=== PATIENT | female | born 1995 | race Caucasian/White ===

== ENCOUNTER 2017-07-17 16:18 | Emergency (ER) | payer OTHER ==
[2017-07-17 17:14] LABS: Absolute Lymphocytes (CBC) 1.8 K/uL (0.7-4.9); Absolute Monocytes 0.5 K/uL (0.1-1.3); Absolute Neutrophil 4.9 K/uL (1.8-8.0); Basophils % 0.5 % (0-1.3); Eosinophils % 1.2 % (0-4.4); Hematocrit 37.6 % (36.0-45.0); Lymphocytes % 24.8 % (15.3-44.8); MCH 30.9 pg (27.0-35.0); MCV 91.1 fL (80-100); MPV 10.2 fL (7.6-11.3); Monocytes % 6.2 % (3.3-12.3); RBC Red Blood Cell Count 4.13 M/uL (3.86-4.86)
[2017-07-17 17:22] LABS: Bicarbonate 27 mEq/L (21-31); Glucose Level 101 mg/dL (65-120); Potassium 3.4 mEq/L (3.6-5.0); Sodium Level 139 mEq/L (135-145)
[2017-07-17] MEDS ORDERED: DEXAMETHASONE 10 MG/ML VIAL ONE (17:24)
[2017-07-17] MEDS ORDERED: NA CHLORIDE 0.9% 1,000 ML ONE (17:24)
[2017-07-17] MEDS ORDERED: KETOROLAC 30 MG/ML INJ ONE (17:24)
[2017-07-17 17:28] LABS: ALT/SGPT 16 IU/L (10-60); AST/SGOT 19 IU/L (10-42); Albumin 3.8 g/dL (3.2-5.5); Alkaline Phosphatase 63 IU/L (42-121); BUN Blood Urea Nitrogen 9 mg/dL (6-20); Bilirubin Direct 0.1 mg/dL (0-0.2); Bilirubin Total 0.7 mg/dL (0.3-1.2); Glomerular Filtration Rate > 90 mL/min (=/>90); Protein, Total 6.6 g/dL (6.0-8.3)
[2017-07-17] MEDS ORDERED: DIPHENHYDRAMINE 50 MG/ML VIAL ONE (17:37)
[2017-07-17 17:45] LABS: Barbiturates NEGATIVE; Benzodiazepines NEGATIVE; Cocaine NEGATIVE; METHAMPHETAM NEGATIVE; Opiates NEGATIVE; Phencyclidine NEGATIVE; THC Cannibis NEGATIVE
--- NOTE | 2017-07-17 18:11 | EDPHYS ---
Physician Documentation [facility] Name: Tammi Raphael Age: 22 yrs Sex: Female : 1995 Arrival Date: 07/17/2017 Time: 16:22 Bed 23 Private MD: ED Physician Coy Trevino HPI: 07/17 17:00 This 22 yrs old Female presents to ER via Ambulatory with complaints of Near wa Syncope. 17:00 This 22 yrs old Female presents to ER via Ambulatory with complaints of Near wa Syncope. 17:00 The patient has experienced near-syncope, almost passed out, felt dizzy, saw "spots" in wa vision similar to here previous migraine aura. Onset: The symptoms/episode began/occurred 1 hour(s) ago. Duration: This was a single episode, that is still ongoing, but improving, admits to VINCENT. admits to dizziness. denies CP, SOB. 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 Associated injury: The patient did not suffer any apparent associated injury. Associated signs and symptoms: Pertinent positives: dizziness, headache, lightheadedness, Pertinent negatives: chest pain, diaphoresis, diarrhea, nausea, numbness, palpitations. Current symptoms: headache, that is moderate, dizziness, . The patient has experienced similar episodes in the past, a few times. 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 - Social history:: Smoking status: Patient uses tobacco products, smokes one pack cigarettes per day. - Family history:: not pertinent. - Hospitalizations: : No recent hospitalization is reported. ROS: 17:05 Constitutional: Negative for fever, chills, and weight loss, Eyes: Negative for injury, wa pain, redness, and discharge, ENT: Negative for injury, pain, and discharge, Neck: Negative for injury, pain, and swelling, Cardiovascular: Negative for chest pain, palpitations, and edema, Respiratory: Negative for shortness of breath, cough, wheezing, and pleuritic chest pain, Abdomen/GI: Negative for abdominal pain, nausea, vomiting, diarrhea, and constipation, Back: Negative for injury and pain, : Negative for injury, bleeding, discharge, and swelling, MS/Extremity: Negative for injury and deformity, Skin: Negative for injury, rash, and discoloration, Allergy/Immunology: Negative for hives, rash, and allergies. 17:05 Neuro: Positive for dizziness, headache, visual changes, Negative for altered mental status, gait disturbance, hearing loss, numbness, seizure activity. 17:05 All other systems are negative. Exam: 17:06 Abdomen/GI: Inspection: Bowel sounds: Palpation: wa 17:06 Head/Face: Normocephalic, atraumatic. Eyes: Pupils equal round and reactive to light, extra-ocular motions intact. Lids and lashes normal. Conjunctiva and sclera are non-icteric and not injected. Cornea within normal limits. Periorbital areas with no swelling, redness, or edema. ENT: Nares patent. No nasal discharge, no septal abnormalities noted. Tympanic membranes are normal and external auditory canals are clear. Oropharynx with no redness, swelling, or masses, exudates, or evidence of obstruction, uvula midline. Mucous membranes moist. Neck: Trachea midline, no thyromegaly or masses palpated, and no cervical lymphadenopathy. Supple, full range of motion without nuchal rigidity, or vertebral point tenderness. No Meningismus. Chest/axilla: Normal chest wall appearance and motion. Nontender with no deformity. No lesions are appreciated. Cardiovascular: Regular rate and rhythm with a normal S1 and S2. No gallops, murmurs, or rubs. Normal PMI, no JVD. No pulse deficits. Respiratory: Lungs have equal breath sounds bilaterally, clear to auscultation and percussion. No rales, rhonchi or wheezes noted. No increased work of breathing, no retractions or nasal flaring. Abdomen/GI: Soft, non-tender, with normal bowel sounds. No distension or tympany. No guarding or rebound. No evidence of tenderness throughout. Back: No spinal tenderness. No costovertebral tenderness. Full range of motion. 17:06 Skin: Warm, dry with normal turgor. Normal color with no rashes, no lesions, and no mt evidence of cellulitis. MS/ Extremity: Pulses equal, no cyanosis. Neurovascular intact. Full, normal range of motion. Psych: Awake, alert, with orientation to person, place and time. Behavior, mood, and affect are within normal limits. 17:06 Neuro: Orientation: is normal, Mentation: is normal, Cranial nerves: grossly normal, is grossly normal based on the patient's age, Cerebellar function: is grossly normal, Motor: is normal, Gait: is steady. Vital Signs: 16:28 BP 133 / 79; Pulse 93; Resp 16; Temp 98; Pulse Ox 100% on R/A; Weight 90.72 kg; Height hb 5 ft. 6 in. (167.64 cm); Pain 4/10; 17:30 BP 138 / 76; Pulse 90; Resp 16; Pulse Ox 99% on R/A; kr2 18:15 BP 132 / 70; Pulse 87; Resp 15; Pulse Ox 99% on R/A; kr2 16:28 Body Mass Index 32.28 (90.72 kg, 167.64 cm) hb MDM: 16:33 Patient medically screened. wa 17:07 Differential Diagnosis: migraine with aura? states actually VINCENT less severe than wa previous episodes except that lightheartedness is worse. Data reviewed: vital signs, nurses notes, lab test result(s), EKG. Test interpretation: by ED physician or midlevel provider: ECG, EKG: HR 77. nml sinus. nml EKG. 18:08 Test interpretation: by ED physician or midlevel provider: labs wnl. nml EKG. Response wa to treatment: the patient's symptoms have markedly improved after treatment. Special discussion: symptoms resolved with ED interventions. will have f/u with neurology. 07/17 16:48 Order name: Basic Metabolic Panel mt 07/17 16:48 Order name: CBC with Diff mt 07/17 16:48 Order name: Hepatic Function mt 07/17 16:48 Order name: Urine Drug Screen mt 07/17 17:17 Order name: CBC with Automated Diff; Complete Time: 18:06 EDVT 07/17 17:20 Order name: Urine Dipstick--Ancillary (enter results) 07/17 17:20 Order name: Urine --Ancillary (enter results) 07/17 17:22 Order name: Basic Metabolic Panel; Complete Time: 18:06 [facility] 07/17 17:29 Order name: Liver (Hepatic) Function; Complete Time: 18:06 [facility] 07/17 17:45 Order name: Urine Drug Screen; Complete Time: 18:06 [facility] 07/17 16:48 Order name: Urine Test (obtain specimen); Complete Time: 17:40 mt 07/17 16:48 Order name: EKG; Complete Time: 16:48 mt 07/17 16:48 Order name: EKG - Nurse/Tech; Complete Time: 17:05 mt 07/17 16:48 Order name: IV Saline Lock; Complete Time: 17:05 mt 07/17 16:48 Order name: Labs collected and sent; Complete Time: 17:05 mt 07/17 16:48 Order name: Urine Dipstick-Ancillary (obtain specimen); Complete Time: 17:40 mt Administered Medications: 17:18 Drug: Decadron - Dexamethasone 10 mg Route: IVP; Site: left antecubital; kr2 18:32 Follow up: Response: No adverse reaction kr2 17:18 Drug: TORadol 30 mg Route: IVP; Site: left antecubital; kr2 18:32 Follow up: Response: No adverse reaction; Pain is decreased kr2 17:19 Drug: NS 0.9% 1000 ml Route: IV; Rate: 1 bolus; Site: left antecubital; kr2 18:32 Follow up: Response: No adverse reaction; IV Status: Completed infusion kr2 17:37 CANCELLED (symptoms resolved prior to medication administration, MD notified): Benadryl kr2 12.5 mg IVP once Disposition: 07/17/17 18:11 Discharged to Home. Impression: Dizziness, Near-Syncope, Migraine with aura. - Condition is Stable. - Discharge Instructions: Migraine Headache, [id number], Dizziness, [id number]. - Prescriptions for ketorolac 10 mg Oral tablet - take 1 tablet by ORAL route every 8 hours as needed for headaches; 20 tablet. - Medication Reconciliation Form, Thank You Letter, Antibiotic Education, Prescription Opioid Use, Work release form form. - Follow up: Sae Arnold MD; When: 2 - 3 days; Reason: Re-evaluation by your physician. - Problem is an acute exacerbation. - Symptoms have improved. - Notes: drink plenty of fluids. get ample sleep. follow up with the neurologist Dr. Arnold for further headache management. return to ER immediately for rapidly worsening concerns Signatures: Dispatcher [employer] EDCharlotte Varela RN RN Coy Trevino MD MD wa Reaves, Karey, RN RN kr2 Corrections: (The following items were deleted from the chart) 17:37 17:17 Benadryl 12.5 mg IVP once ordered. yvette [email or web address]
--- NOTE | 2017-07-17 18:11 | ER ---
Nurse's Notes [facility] Name: Tammi Raphael Age: 22 yrs Sex: Female : 1995 Arrival Date: 07/17/2017 Time: 16:22 Bed 23 Private MD: Diagnosis: Dizziness;Near-Syncope;Migraine with aura Presentation: 07/17 16:26 Presenting complaint: Patient states: "I saw bright lights similar to my migraine aura, hb then felt very weak and had to lean into the wall and almost passed out.". Transition of care: patient was not received from another setting of care. Onset of symptoms was July 17, 2017 at 15:30. Care prior to arrival: None. 16:26 Method Of Arrival: Ambulatory 16:26 Acuity: ROSELINE 3 hb Triage Assessment: 16:30 General: Appears in no apparent distress. uncomfortable, well groomed, well developed, kr2 well nourished, Behavior is calm, cooperative, appropriate for age. Pain: Complains of pain in head Pain currently is 8 out of 10 on a pain scale. Quality of pain is described as aching, throbbing, Is continuous, Alleviated by nothing. Aggravated by increased activity. 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 - Social history:: Smoking status: Patient uses tobacco products, smokes one pack cigarettes per day. - Family history:: not pertinent. - Hospitalizations: : No recent hospitalization is reported. Screenin:30 Abuse screen: Denies threats or abuse. Denies injuries from another. Nutritional kr2 screening: No deficits noted. Tuberculosis screening: No symptoms or risk factors identified. Fall Risk None identified. Assessment: 16:30 General: Appears in no apparent distress. uncomfortable, well groomed, well developed, kr2 well nourished, Behavior is calm, cooperative, appropriate for age. Pain: Complains of pain in head Pain currently is 8 out of 10 on a pain scale. Quality of pain is described as aching, throbbing, Is continuous. Neuro: Level of Consciousness is awake, alert, obeys commands, Oriented to person, place, time, situation, Appropriate for age. Cardiovascular: Reports fatigue, lightheadedness, Capillary refill < 3 seconds in bilateral fingers Patient's skin is warm and dry. Respiratory: Airway is patent Respiratory effort is even, unlabored, Respiratory pattern is regular, symmetrical. GI: Abdomen is flat, non-distended, Reports nausea. : Denies burning with urination. EENT: Nares are clear bilaterally Oral mucosa is moist. Derm: Skin is intact, is healthy with good turgor, Skin is pink, warm \\T\\ dry. Musculoskeletal: Circulation, motion, and sensation intact. 17:15 Reassessment: Patient complained of itching after receiving decadron and toradol. IV kr2 MD corinne notified, Benadryl ordered. Upon return to patient room, symptoms had completely resolved. Benadryl MD vicente notified. Normal saline bolus continued as ordered. 18:15 Reassessment: Patient appears in no apparent distress at this time. Patient and/or kr2 family updated on plan of care and expected duration. Pain level reassessed. Patient is alert, oriented x 3, equal unlabored respirations, skin warm/dry/pink. Patient states feeling better. Patient states symptoms have improved. Vital Signs: 16:28 BP 133 / 79; Pulse 93; Resp 16; Temp 98; Pulse Ox 100% on R/A; Weight 90.72 kg; Height hb 5 ft. 6 in. (167.64 cm); Pain 4/10; 17:30 BP 138 / 76; Pulse 90; Resp 16; Pulse Ox 99% on R/A; kr2 18:15 BP 132 / 70; Pulse 87; Resp 15; Pulse Ox 99% on R/A; kr2 16:28 Body Mass Index 32.28 (90.72 kg, 167.64 cm) hb ED Course: 16:22 Patient arrived in ED. mr 16:27 Triage completed. hb 16:28 Arm band placed on left wrist. hb 16:30 Patient has correct armband on for positive identification. Bed in low position. Call kr2 light in reach. Side rails up X 1. Pulse ox on. NIBP on. Door closed. Warm blanket given. Head of bed elevated. 16:33 Coy Trevino MD is Attending Physician. wa 16:49 Rosa Harrison, RN is Primary Nurse. kr2 17:05 Inserted saline lock: 20 gauge in left antecubital area, using aseptic technique. cc1 17:06 Initial lab(s) drawn, by me, sent to lab. cc1 17:08 EKG done, by emissions technician. reviewed by Coy Trevino MD. rg3 18:10 Sae Arnold MD is Referral Physician. wa 18:15 No provider procedures requiring assistance completed. IV discontinued, intact, kr2 bleeding controlled, No redness/swelling at site. Pressure dressing applied. Administered Medications: 17:18 Drug: Decadron - Dexamethasone 10 mg Route: IVP; Site: left antecubital; kr2 18:32 Follow up: Response: No adverse reaction kr2 17:18 Drug: TORadol 30 mg Route: IVP; Site: left antecubital; kr2 18:32 Follow up: Response: No adverse reaction; Pain is decreased kr2 17:19 Drug: NS 0.9% 1000 ml Route: IV; Rate: 1 bolus; Site: left antecubital; kr2 18:32 Follow up: Response: No adverse reaction; IV Status: Completed infusion kr2 17:37 CANCELLED (symptoms resolved prior to medication administration, MD notified): Benadryl kr2 12.5 mg IVP once Outcome: 18:11 Discharge ordered by . wa 18:15 Discharged to home ambulatory, with family. kr2 18:15 Condition: good 18:15 Discharge instructions given to patient, Instructed on discharge instructions, follow up and referral plans. medication usage, Demonstrated understanding of instructions, follow-up care, medications, Prescriptions given X 1. 18:33 Patient left the ED. kr2 Signatures: Joan Saenz Deo Major cc1 Petty Ruiz rg3 Charlotte Roland, Coy Infante RN, MD MD [place] Rosa Harrison, RN RN kr2
[2017-07-17 18:53] LABS: Urine Blood NEGATIVE (NEG); Urine Glucose NEGATIVE (NEG); Urine Protein NEGATIVE (NEG)
--- NOTE | 2017-07-18 05:55 | EKG ---
Test Date: 2017-07-17 Test Time: 16:55:56 Paintings Conservator: LETITIA MEASUREMENT RESULTS: Intervals: Rate: 77 SC: 108 QRSD: 88 QT: 390 QTc: 441 [place]: P: -6 SC: 108 QRS: 83 T: 45 INTERPRETIVE STATEMENTS: Sinus rhythm with short SC Otherwise normal ECG No previous ECG available for comparison Electronically Signed On 07-18-17 05:55:17 CDT by Austin Elmore
== END 2017-07-17 18:33 | disposition home or self-care (01) ==
LOC: ER 16:18
DX: G43.109 Migraine with aura, not intractable, without status migrainosus (principal); R42 Dizziness and giddiness; F17.210 Nicotine dependence, cigarettes, uncomplicated
CPT/HCPCS: 36415; 80048; 80076; 80307; 81003; 81025; 85025; 93005; 96361; 96374; 96375; 99284; J1100; J7030